=== PATIENT | male | born 1950 | race Caucasian/White ===

== ENCOUNTER → 2018-10-05 10:11 | Outpatient (CLI) | payer MEDICARE, OTHER, SELFPAY ==
[2018-10-05 11:24] LABS: EXAGEN MAILED SPECIMEN
[2018-10-05 12:14] LABS: Color, Urine Yellow (Yellow); Glucose, Dipstick Normal (Normal); Ketone-Dipstick Negative (Negative); Leukocyte Esterase-Dipstick 25 /ul (Negative); Nitrite-Dipstick Negative (Negative); Occult Blood-Urine Negative /ul (Negative); Protein-Dipstick 15 mg/dl (Negative); Specific Gravity, Urine 1.025 (1.002-1.030); Urine Bilirubin Dipstick Negative (Negative); Urine Clarity Clear (Clear); Urine Urobilinogen Normal (Normal)
[2018-10-05 12:27] LABS: Erythrocyte Sedimentation Rate 55 mm/hr (0-20)
[2018-10-05 12:29] LABS: Absolute Lymphocyte Count 1.12 X10^3/ul (0.83-4.51); Absolute Neutrophil Count 5.3 X10^3/uL (2.0-7.7); Basophil# 0.03 X10^3/uL; Basophil% 0.4 % (0-1); Eosinophil# 0.45 X10^3/uL; Eosinophils% 5.9 % (0-5); Hematocrit 43.7 % (40-54); Hemoglobin 14.1 g/dl (13.0-16.5); Lymphocyte # 1.12 X10^3/ul (4.0); Lymphocyte % 14.7 % (19-41); Mean Corp Hgb Conc 32.3 g/gl (32-36); Mean Corpuscular Hgb 28.7 pg (27.0-32.0); Mean Corpuscular Volume 88.8 fL (80-94); Monocyte# 0.73 X10^3/uL; Monocyte% 9.6 % (0-10); Neutrophil % 69.3 % (47-70); Platelet Count 321 K/mm3 (150-450); Protein, Urine (Random) 18.8 mg/dL (<11.9); Protein:Creat Ratio 94 mg/g CRE (0-200); RBC Distribution Width CV 15.3 % (11.6-14.6); RBC Distribution Width SD 49.8 fl (35.1-43.9); Red Blood Count 4.92 M/mm3 (4.6-6.2); White Blood Count 7.6 K/mm3 (4.4-11.0)
[2018-10-05 12:31] LABS: POSITIVE COUNT NO; POSITIVE DIFFERENTIAL NO; POSITIVE MORPHOLOGY NO
[2018-10-05 12:34] LABS: ALB/GLOB Ratio 0.9 RATIO (0.9-2.4); AST(SGOT) 15 U/L (15-37); Alanine Aminotransfer ALT/SGPT 18 U/L (16-61); Albumin, Serum 3.5 g/dL (3.2-5.0); Alkaline Phosphatase 89 U/L (45-117); Anion Gap 7 (5-15); BUN 19 mg/dL (7-18); Calcium,Total 9.1 mg/dL (8.5-10.1); Chloride 107 mmol/L (98-107); EST Glomerular Filtration Rate 79 mL/min (>60); Est Glom Filt Rate - Afr Amer 95 mL/min (>60); Globulin 3.8 g/dL (2.2-4.2); Glucose 89 mg/dL (74-106); Potassium 4.2 mmol/L (3.5-5.1); Protein, Total 7.3 g/dL (6.4-8.2); Sodium Level 141 mmol/L (136-145)
[2018-10-07 12:16] LABS: HEPATITIS B SURFACE AG Negative (Negative); Hep B Surface Antibodies Non Reactive (.); Hep C Antibodies <0.1 s/co ratio (0.0-0.9)
== END ==
PROVIDERS: Family Provider Family Medicine; PCP Family Medicine; Referring Provider Internal Medicine Rheumatology; Visit Provider Internal Medicine Rheumatology
DX: M06.4 Inflammatory polyarthropathy (principal); R76.8 Other specified abnormal immunological findings in serum; M47.892 Other spondylosis, cervical region; M47.897 Other spondylosis, lumbosacral region; K21.9 Gastro-esophageal reflux disease without esophagitis; F41.9 Anxiety disorder, unspecified; F32.89 Other specified depressive episodes; G62.9 Polyneuropathy, unspecified
CPT/HCPCS: 36415; 80053; 81002; 82570; 84156; 85025; 85652; 86140; 86706; 86803; 87340

== ENCOUNTER 2021-08-01 15:20 | Outpatient (CLI) | payer OTHER, MEDICARE, SELFPAY ==
--- NOTE | 2021-08-01 09:00 | KNEE_PTH ---
PATIENT: JOAQUÍN IBARRA LOC: [facility] U#:[id number] AGE/SX: 70/M ROOM: RE08/01/[address]: Dr. Sixto Duenas MD : 1950 BED: DIS: 08/01/2021 SPEC #: [id number] RECD: 08/01/21 15:08 STATUS: CARLOS REChristine #: [id number] SAMY: 08/01/21 09:[address]: Sixto Duenas DEPT: SURGICAL PATHOLOGY RECD BY: Beth Muniz ENTERED: 08/04/21 08:04 SP TYPE: TOTAL KNEE OTHR DR: Dr. Mehdi Chavarria MD Tissues: Knee, NOS Procedures: Decalcification bone/plaque Surgery Specimen Level IV HEADER OPERATION: Right total knee replacement PRE-OP DIAGNOSIS: Right knee arthritis TISSUE SUBMITTED: Right knee bone MICROSCOPIC DIAGNOSIS Bone and tissue of right knee, total knee resection: Severe degenerative joint disease. Mild synovial hyperplasia. AM:ara 08/07/2021 MICROSCOPIC DESCRIPTION Slides are reviewed. GROSS DESCRIPTION Received is one container designated bone and soft tissue right knee. The specimen consists of multiple fragments of loving-yellow bone measuring in aggregate 11 x 9 x 3 cm. Also in the specimen container are multiple fragments of yellow-white soft tissue measuring in aggregate 9 x 7 x 3 cm. A number of bony fragments contain articular surfaces consistent with tibial plateau and femoral condyle and displaying prominent osteophyte formation, eburnation, and bone erosion. Hairspring Setter sections are submitted in two cassettes as follows: 1 - soft tissue, 2 - bone after decalcification. / LALO:ara 08/04/2021 TC:5 CPT: 72652, 84179
== END 2021-08-01 23:59 | disposition short-term general hospital (02) ==
PROVIDERS: PCP Family Medicine; Visit Provider Orthopaedic Surgery
DX: M17.11 Unilateral primary osteoarthritis, right knee (principal)
CPT/HCPCS: 88305; 88311

== ENCOUNTER 2021-12-22 09:04 | Day surgery (SDC) | payer OTHER, SELFPAY ==
--- NOTE | 2021-12-22 | LES_PTH ---
PATIENT: JOAQUÍN IBARRA [place] [facility] [id number] AGE/SX: 71/M ROOM: RE12/22/[address]: Dr. Marlo Varela MD : 1950 BED: DIS: 12/22/2021 SPEC #: [id number] RECD: 12/22/21 11:10 STATUS: CARLOS REQ #: [id number] SAMY: 12/22/21 00:[address]: Marlo Varela DEPT: SURGICAL PATHOLOGY RECD BY: Teena Stoll ENTERED: 12/22/21 11:59 SP TYPE: Lesion OTHR DR: Dr. Mehdi Chavarria MD Tissues: A - Skin of neck, NOS B - Skin of face, NOS Procedures: Frozen Section (charge) Frozen Section Add'l ([facility]) Surgery Specimen Level IV HEADER OPERATION: Excision lesion left neck with frozen section PRE-OP DIAGNOSIS: Basal cell carcinoma of skin of scalp and neck TISSUE SUBMITTED: A - Basal cell carcinoma, left neck, short stitch - anterior, long stitch - lateral, FS, B - Right chin lesion FROZEN SECTION DIAGNOSIS A. Left neck lesion, excisional biopsy: Basal cell carcinoma. Margins are free of tumor. SJ:ara 12/22/2021 MICROSCOPIC DIAGNOSIS A. Right neck lesion, excisional biopsy: Basal cell carcinoma, completely excised. See comment. B. Right chin lesion, excisional biopsy: Intradermal nevus, neurotized. Focal verrucous keratosis. See comment. SJ:ara 12/24/2021 COMMENT A. The tumor measures 0.8 x 0.5 cm in greatest dimension (measured microscopically). B. The nevus is present at one lateral margin of the specimen. Immunohistochemistry ([id number]) supports the above diagnosis. Case has been reviewed in consultation with Dr. Lutz who concurs with the above diagnosis. IDC:AM MICROSCOPIC DESCRIPTION Slides are reviewed. GROSS DESCRIPTION A - Received fresh for frozen section diagnosis labeled with the patient's name is a specimen designated left neck lesion. The specimen consists of a piece of loving-white skin ellipse measuring 2.6 x 2 x 0.2 cm. The specimen is oriented as follows: short stitch - anterior, long stitch - lateral. The specimen is inked as follows: anterior tip - yellow, posterior tip - green, lateral margin - black, medial margin - blue. The specimen is serially sectioned and submitted entirely for frozen section diagnosis in three cassettes as follows: 1 - anterior and posterior tip, 2 & 3 - rest of the specimen. / LALO:ara 12/22/2021 B - Received in fixative is one container labeled with the patient's name and designated right chin lesion. The specimen consists of a piece of skin measuring 0.6 x 0.5 x 0.3 cm. The specimen is inked, sectioned and submitted entirely in one cassette. / SJ:ara 12/23/2021 TC:0 CPT: 96458 x2, 09043, 32000 x2
--- NOTE | 2021-12-22 | IMM_PTH ---
PATIENT: JOAQUÍN IBARRA LOC: [facility] – [place] U#:[id number] AGE/SX: 71/M ROOM: RE12/22/[address]: Dr. Marlo Varela MD : 1950 BED: DIS: 12/22/2021 SPEC #: [id number] RECD: 12/24/21 13:44 STATUS: CARLOS REQ #: [id number] SAMY: 12/22/21 00:[address]: Marlo Varela DEPT: IMMUNOHISTOCHEMISTRY RECD BY: Teena Stoll ENTERED: 12/24/21 13:46 SP TYPE: IMMUNO OTHR DR: Dr. Mehdi Chavarria MD Tissues: B - Skin of face, NOS Procedures: SMA (add) CK8 (add) DESMIN (add) Vimentin (add) Pankeratin (initial) MELAN-A (add) S-100 (add) PHYSICIAN & INSTITUTION [place] [id number] SPECIMEN INFORMATION: Tissue Source: B ? Right chin lesion Clinical Info: Basal cell carcinoma of skin of scalp and neck Specimen Number: [id number] CPT code: 22137, 56134 x6 METHODOLOGY: Deparaffinized sections of prefer/formalin-fixed tissue or PAP/DQ stained slides are incubated with monoclonal/polyclonal antibodies/oligonucleotide probes. Localization is made via biotin free immunoperoxidase method. Appropriate controls are performed and reacted as expected. Results on target cell population are indicated in the following table: RESULTS: ANTIBODY / CLONE RESULT Block B AE1-3 (AE1/AE3/PCK26) negative CK8 ([id number]) negative Vimentin (V9) positive Actin (1A4) negative Desmin (CE-R-11) negative Melan A (A103) negative S-100 (4C4.9) positive These tests were developed and their performance characteristics determined by [facility]. They may not have been cleared or approved by the U.S. Food and Drug Administration. The FDA has determined that such clearance or approval is not necessary. The above immunohistochemical/dualISH markers are ordered and reviewed by the Pathologist. INTERPRETATION: Right chin lesion, excisional biopsy: Intradermal nevus, neurotized. LALO:ara 12/25/2021
[2021-12-22 09:55] VITALS: BP 121/58; PULSE 62; RESP 16; TEMP 36.4; O2SAT 96; BMI 34.1
[2021-12-22] MEDS: Lidocaine 1% /Epi 1:100 (20ml) 20 ML Vial (10:51)
--- NOTE | 2021-12-22 11:39 | PCM.DC.SUM ---
Providers Primary Care Physician: Dr. Mehdi Chavarria MD Reason For Visit: EXC L NECK LESION FROZEN SECTION Medications at Discharge Home Medications bupropion HCl 150 mg 24 hr tablet, extended release 300 mg PO DAILY 12/15/21 fluoxetine 40 mg capsule 40 mg PO QHS 12/15/21 folic acid 1 mg tablet 2 mg PO DAILY 12/15/21 gabapentin 600 mg tablet 400 mg PO TID 12/15/21 hydroxychloroquine 200 mg tablet 400 mg PO QHS 12/15/21 leucovorin calcium 25 mg tablet 15 mg PO MO 12/15/21 levothyroxine 125 mcg tablet 125 mcg PO DAILY 12/15/21 methotrexate sodium 2.5 mg tablet 20 mg PO GARNER 12/15/21 mirtazapine 30 mg tablet 30 mg PO QHS depression 12/15/21 omeprazole 20 mg capsule,delayed release 20 mg PO DAILY 12/15/21 prednisone 2.5 mg tablet 2.5 mg PO DAILY 12/15/21 tamsulosin 0.4 mg capsule 0.4 mg PO DAILY 12/15/21 Weight / BMI Weight Weight: 124 kg Body Mass Index (BMI) 34.1 D/C Instructions Discharge Diet: No restrictions Remove Dressing in: 1 day Additional Dressing/Incision Instructions: Remove dressing tomorrow morning and discard. Apply antibiotic ointment (over the counter) twice a day to the sutures. You may get the sutures wet on Wednesday. Please Follow Up With: Marlo Varela MD When: next week Meaningful Use Info Meaningful Use Diagnoses (Choose all that apply): None applicable Discharge Plan Admission Attending Provider: Marlo Varela Primary Care Provider: Mehdi Chavarria Discharge Orders/Prescriptions Prescriptions: No Action fluoxetine 40 mg capsule 40 mg PO QHS Label Comments: TAKE 1 CAPSULE BY MOUTH ONCE DAILY gabapentin 600 mg tablet 400 mg PO TID Label Comments: TAKE 1 TABLET BY MOUTH THREE TIMES DAILY leucovorin calcium 25 mg tablet 15 mg PO MO Label Comments: TAKE 1 TABLET BY MOUTH ONCE A WEEK methotrexate sodium 2.5 mg tablet 20 mg PO GARNER Label Comments: TAKE 8 TABLETS BY MOUTH ONCE A WEEK tamsulosin 0.4 mg capsule 0.4 mg PO DAILY Label Comments: TAKE 1 CAPSULE BY MOUTH ONCE DAILY prednisone 2.5 mg tablet 2.5 mg PO DAILY Label Comments: TAKE 1 TABLET BY MOUTH IN THE MORNING mirtazapine 30 mg tablet 30 mg PO QHS Label Comments: TAKE 1 TABLET BY MOUTH EVERY DAY AT BEDTIME levothyroxine 125 mcg tablet 125 mcg PO DAILY omeprazole 20 mg capsule,delayed release(DR/EC) 20 mg PO DAILY Label Comments: TAKE 1 CAPSULE BY MOUTH ONCE DAILY folic acid 1 mg tablet 2 mg PO DAILY Label Comments: TAKE 2 TABLETS BY MOUTH ONCE DAILY hydroxychloroquine 200 mg tablet 400 mg PO QHS Label Comments: TAKE 1 TABLET BY MOUTH TWICE DAILY bupropion HCl 150 mg tablet extended release 24 hr 300 mg PO DAILY Label Comments: TAKE 1 TABLET BY MOUTH EVERY 24 HOURS Referrals / Follow Up: Mehdi Chavarria MD [Primary Care Provider] - Disposition Disposition (needs filled in before D/C Order can be placed): Home, Self Care
--- NOTE | 2021-12-22 11:41 | OP.PCM_ITS ---
Report of Operation Date of Procedure: 12/22/21 Pre-Operative Diagnosis: 1. basal cell carcinoma left neck 2. right neck neoplasm Post-Operative Diagnosis: same Surgery/Procedure Performed:: 1. Excision basal cell carcinoma left neck (size of defect 3.4 x 2.5 cm) with intermediate repair 2. Excision left neck neoplasm (size of defect 1 x .8 cm) with intermediate repair Surgeon: Marlo Varela Type of Anesthesia: General Anesthesiologist: Devyn Shelton Estimated Blood Loss (mL): minimal Description of Procedure: The patient was taken to the operating room on 12/22/2021. He was placed in the supine position on the operating table. He was given sufficient general anesthesia. The entire neck was prepped and draped sterilely. 1% lidocaine wi th epinephrine was injected into the area surrounding the right neck neoplasm and the left neck basal cell carcinoma. The right neck lesion was excised in an ellipse with a 15 blade. Hemostasis was achieved with bipolar cautery. I then undermined the skin with scissors. Again hemostasis was achieved with bipolar cautery. Irrigation was then used. The subcutaneous skin was then closed with 4-0 Vicryl and the skin was closed with running 5-0 nylon. Attention was then turned to the left neck basal cell carcinoma. I excised the lesion in an ellipse with 5 mm margins circumferentially. This was completed with a 15 blade. Sharp dissection was then used to to remove the specimen in its entirety. It was sent for frozen section. Hemostasis was achieved with bipolar cautery. We eventually heard back from anesthesia that the margins were clear of any tumor. The subcutaneous tissue was closed with interrupted 4-0 Vicryl. Skin was closed with running 5-0 nylon. A pressure dressing was then applied. Patient then awoken and brought to recovery room in stable condition. Blood loss minimal, replacement none. Sponge, needle, and instrument count were correct at the end of the procedure.
[2021-12-22 11:50] VITALS: BP 113/61; BP 121/68; PULSE 69; RESP 16; TEMP 36.3; O2SAT 95
[2021-12-22 12:00] VITALS: BP 105/60; BP 121/68; PULSE 63; RESP 16; O2SAT 16
[2021-12-22 12:15] VITALS: BP 104/70; BP 121/68; PULSE 64; RESP 16; O2SAT 93
[2021-12-22 12:17] VITALS: BP 105/64; BP 121/68; PULSE 62; RESP 16; TEMP 36.9; O2SAT 96
== END 2021-12-22 12:52 | disposition home or self-care (01) ==
LOC: SDC 09:06 → AC 09:11
PROVIDERS: PCP Family Medicine; Referring Provider Otolaryngology; Visit Provider Otolaryngology
PROC: (CPT 11604; principal; 2021-12-22 10:20)
DX: C44.41 Basal cell carcinoma of skin of scalp and neck (principal); M06.9 Rheumatoid arthritis, unspecified; L57.0 Actinic keratosis; F41.9 Anxiety disorder, unspecified; F32.A Depression, unspecified; K21.9 Gastro-esophageal reflux disease without esophagitis; Z86.16 Personal history of COVID-19
CPT/HCPCS: 11604; 00300; 88305; 88331; 88332; 88341; 88342; J7120; J2405

== ENCOUNTER → 2022-04-20 | Outpatient (CLI) | payer MEDICARE, SELFPAY ==
[2022-04-22 16:09] LABS: Red Blood Cell Count Test/G6PD 4.25 x10E6/uL (4.14-5.80)
[2022-04-23 17:39] LABS: G6PD Quant Test 291 (127-427)
== END | disposition home or self-care (01) ==
PROVIDERS: PCP Family Medicine; Referring Provider Internal Medicine Rheumatology; Visit Provider Internal Medicine Rheumatology
DX: M06.4 Inflammatory polyarthropathy (principal); Z79.899 Other long term (current) drug therapy; M47.892 Other spondylosis, cervical region; M47.897 Other spondylosis, lumbosacral region; K21.9 Gastro-esophageal reflux disease without esophagitis; F41.9 Anxiety disorder, unspecified; F32.89 Other specified depressive episodes; G62.9 Polyneuropathy, unspecified
CPT/HCPCS: 36415; 82955

== ENCOUNTER → 2022-11-10 | Outpatient (CLI) | payer MEDICARE, SELFPAY ==
[2022-11-10 12:30] VITALS: PULSE 101; PULSE 105; PULSE 80; PULSE 83; PULSE 90; PULSE 91; O2SAT 91; O2SAT 92; O2SAT 93; O2SAT 95
--- NOTE | 2022-11-10 14:15 | WT_ITS ---
PSN 6 Minute Walk Test 6 Minute Walk Test 6 Minute Walk Test: 6 Minute Walk Test PSN:6-Minute Walk Test Start: 11/10/22 12:46 Freq: Status: Active Protocol: RESP.6MINW Document 11/10/22 12:30 [facility] (Rec: 11/10/22 12:48 [facility] [id number]) 6 Minute Walk Test Date Performed 11/10/22 Time Performed 12:30 Height 6 ft 3 in Weight: 124.738 kg Weight in Pounds 275.[address]: Dr Chavarria Assistive device used: None Pre-test Oxygen Delivery Method Room Air Pulse Ox (%) 92 Pulse Rate (60-100 beats/min) 80 Dyspnea Jason Scale (0-10) 0.5 Exertion Jason Scale (6-20) 6 1st minute Oxygen Delivery Method Room Air Pulse Ox (%) 92 Pulse Rate (60-100 beats/min) 90 2nd minute Oxygen Delivery Method Room Air Pulse Ox (%) 91 Pulse Rate (60-100 beats/min) 91 3rd minute Oxygen Delivery Method Room Air Pulse Ox (%) 92 Pulse Rate (60-100 beats/min) 105 H 4th minute Oxygen Delivery Method Room Air Pulse Ox (%) 93 Pulse Rate (60-100 beats/min) 91 5th minute Oxygen Delivery Method Room Air Pulse Ox (%) 92 Pulse Rate (60-100 beats/min) 91 6th minute Oxygen Delivery Method Room Air Pulse Ox (%) 93 Pulse Rate (60-100 beats/min) 101 H Dyspnea Jason Scale (0-10) 0.5 Exertion Jason Scale (6-20) 8 Post-test Oxygen Delivery Method Room Air Pulse Ox (%) 95 Pulse Rate (60-100 beats/min) 83 Full Laps Walked 18 Partial Lap, Number of Tiles Walked 28 Total Distance Walked (ft) 1090 Interpretation Interpretation: The patient was noted to be 92% on room air at rest. The patient did not have significant desaturation with an oxygen sophie of 91%, but did have some tachycardia as high as 105 bpm. In total, the patient traveled 1090 feet over the course of 6 minutes on room air with no assistive devices or breaks. These findings are consistent with a respiratory limitation exercise tolerance. Recommendations Recommendations: However No supplemental oxygen is indicated at this time. The patient will need to be followed closely given lower baseline saturations.
== END | disposition home or self-care (01) ==
LOC: PSN 12:09
PROVIDERS: PCP Family Medicine; Referring Provider Internal Medicine Critical Care Medicine; Visit Provider Internal Medicine Critical Care Medicine
DX: R06.09 Other forms of dyspnea (principal)
CPT/HCPCS: 94618

== ENCOUNTER → 2022-11-17 | Outpatient (CLI) | payer MEDICARE, SELFPAY ==
--- NOTE | 2022-11-18 07:51 | BRONCHALL ---
Bronchoprovocation Challenge Bronchoprovocation Challenge Bronchoprovocation Challenge: INTRODUCTION: The patient is a 71-year-old male that presents for a methacholine inhalation challenge secondary to a diagnosis of dyspnea. Respiratory therapy reported good patient effort and reproducible results. INTERPRETATION: Initial spirometry did not show any large airways obstructive ventilatory defect with preserved airflows throughout. The patient was then given progressively increasing doses of methacholine in a standardized fashion. At the highest level, the patient did experience a 22% reduction in FEV1. Postbronchodilator recovery was noted. The PD 20 FEV1 was noted to be 1.47. IMPRESSION: Positive methacholine inhalation challenge in a pattern consistent with borderline airway hyperresponsiveness.
== END | disposition home or self-care (01) ==
LOC: PSN 12:54
PROVIDERS: PCP Family Medicine; Referring Provider Internal Medicine Critical Care Medicine; Visit Provider Internal Medicine Critical Care Medicine
DX: R06.09 Other forms of dyspnea (principal)
CPT/HCPCS: 94070; 95070; J3490; J7674

== ENCOUNTER 2023-07-19 05:49 | Day surgery (SDC) | payer MEDICARE, SELFPAY ==
--- NOTE | 2023-07-15 09:00 | EKG12_ITS ---
Test Reason : PRE OP Blood Pressure : / mmHG Vent. Rate : 069 BPM Atrial Rate : 069 BPM P-R Int : 162 ms QRS Dur : 092 ms QT Int : 422 ms P-R-T Axes : 040 -22 040 degrees QTc Int : 452 ms Normal sinus rhythm with sinus arrhythmia Low voltage QRS Borderline ECG Confirmed by ROBERTO CARLOS REYEZ, YECENIA ([id number]), publication editor KAREN COHEN ([id number]) on 07/16/2023 7:27:27 AM Referred By: Marlo Varela Confirmed By:YECENIA AZEVEDO MD
[2023-07-15 09:28] LABS: Hematocrit 43.4 % (40-54); Hemoglobin 13.7 g/dL (13.0-16.5); Mean Corp Hgb Conc 31.6 g/dL (32-36); Mean Corpuscular Hgb 31.2 pg (27.0-32.0); Mean Corpuscular Volume 98.9 fL (80-94); Mean Platelet Vol. 9.3 fl (6.2-12.0); Platelet Count 215 K/mm3 (150-450); RBC Distribution Width SD 54.1 fl (35.1-43.9); Red Blood Count 4.39 M/mm3 (4.6-6.2); White Blood Count 5.4 K/mm3 (4.4-11.0)
[2023-07-15 10:07] LABS: BUN 13 mg/dL (7-18)
[2023-07-19] VITALS (8 sets, daily range): BP systolic 108–137; BP diastolic 71–76; PULSE 61–76; RESP 16; TEMP 36.3–36.7; O2SAT 94–99; BMI 34.3
--- OUTSIDE RECORDS SUMMARY | 2023-07-19 06:00 | XMS RPT_ITS | CCD ---
Author Name Unknown Address [address] [place] [address] Organization [facility] Care Team Providers Care Mooner Name Role Phone MEHDI CHAVARRIA MD Primary Care Physician MEHDI CHAVARRIA MD Primary Care Unavailable TAMERA REYEZ, DR MELENDEZ Attending Unavailabl e MEHDI CHAVARRIA Consulting Unavailable RILEY CARPIO MD Admitting Unavailable RILEY CARPIO MD Primary Care Unavailable RILEY CARPIO MD Attending Unavailable PROVIDER, UNKNOWN Consulting Unavailable PROVIDER, UNKNOWN Consulting Unavailable PROVIDER, UNKNOWN Consulting Unavailable MEHDI CHAVARRIA Attending Unavailable MEHDI CHAVARRIA Admitting Unavailable MEHDI CHAVARRIA Primary Care Unavailable MEHDI CHAVARRIA Consulting Unavailable PROVIDER, UNKNOWN Consulting Unavailable PROVIDER, UNKNOWN Consulting Unavailable PROVIDER, UNKNOWN Consulting Unavailable DIANN COUCH MD Attending Unavailable DIANN COUCH MD Admitting Unavailable DIANN COUCH MD Primary Care Unavailable MEHDI CHAVARRIA Referring Unavailable MEHDI CHAVARRIA Consulting Unavailable PROVIDER, UNKNOWN Consulting Unavailable PROVIDER, UNKNOWN Consulting Unavailable PROVIDER, UNKNOWN Consulting Unavailable MCKAYLA BRANDON DO Attending Unavailable MCKAYLA BRANDON DO Admitting Unavailable MEHDI CHAVARRIA Referring Unavailable MCKAYLA BRANDON DO Primary Care Unavailable MEHDI CHAVARRIA Consulting Unavailable PROVIDER, UNKNOWN Consulting Unavailable PROVIDER, UNKNOWN Consulting Unavailable PROVIDER, UNKNOWN Consulting Unavailable MEHDI CHAVARRIA Attending Unavailable MEHDI CHAVARRIA Admitting Unavailable MEHDI CHAVARRIA Primary Care Unavailable MEHDI CHAVARRIA Consulting Unavailable PROVIDER, UNKNOWN Consulting Unavailable PROVIDER, UNKNOWN Consulting Unavailable PROVIDER, UNKNOWN Consulting Unavailable DIANN COUCH MD Attending Unavailable DIANN COUCH MD Admitting Unavailable MEHDI CHAVARRIA Consulting Unavailable DIANN COUCH MD Primary Care Unavailable PROVIDER, UNKNOWN Consulting Unavailable PROVIDER, UNKNOWN Consulting Unavailable PROVIDER, UNKNOWN Consulting Unavailable MARYJANE OCHOA BOILER HOUSE SUPERVISOR Attending Unavailable MARYJANE OCHOA BOILER HOUSE SUPERVISOR Admitting Unavailable MEHDI CHAVARRIA Consulting Unavailable MARYJANE OCHOA BOILER HOUSE SUPERVISOR Primary Care Unavailable PROVIDER, UNKNOWN Consulting Unavailable PROVIDER, UNKNOWN Consulting Unavailable PROVIDER, UNKNOWN Consulting Unavailable TEACH, MARYJANE BOILER HOUSE SUPERVISOR Attending Unavailable TEACH, MARYJANE BOILER HOUSE SUPERVISOR Admitting Unavailable TEACH, MARYJANE BOILER HOUSE SUPERVISOR Primary Care Unavailable DEON, MEHDI Consulting Unavailable PROVIDER, UNKNOWN Consulting Unavailable PROVIDER, UNKNOWN Consulting Unavailable PROVIDER, UNKNOWN Consulting Unavailable RILEY CARPIO Attending Unavailable RILEY CARPIO Admitting Unavailable BROWN, MEHDI Consulting Unavailable RILEY CARPIO Primary Care Unavailable PROVIDER, UNKNOWN Consulting Unavailable PROVIDER, UNKNOWN Consulting Unavailable PROVIDER, UNKNOWN Consulting Unavailable MEHDI CHAVARRIA Consulting Unavailable RILEY CARPIO MD Admitting Unavailable RILEY CARPIO MD Primary Care Unavailable RILEY CARPIO MD Attending Unavailable PROVIDER, UNKNOWN Consulting Unavailable PROVIDER, UNKNOWN Consulting Unavailable PROVIDER, UNKNOWN Consulting Unavailable MEHDI CHAVARRIA Consulting Unavailable RILEY CARPIO MD Attending Unavailable RILEY CARPIO MD Admitting Unavailable RILEY CARPIO MD Primary Care Unavailable PROVIDER, UNKNOWN Consulting Unavailable PROVIDER, UNKNOWN Consulting Unavailable PROVIDER, UNKNOWN Consulting Unavailable Deon REYEZ, Mehdi Bynum Unavailable [facility] Unavailable Lamont REYEZ, Dr. Daisha Graham Unavailable Dr. Iban Hammer MD Unavailable [facility] Unavailable Dr. Riley Carpio MD Unavailable Dr. Daren Philip MD Unavailable Medicine [facility] Unavailable Henrique REYEZ, Dr. Henson ([facility]) A Unavail able Luciano MONAE, Jian Thomson Unavailable Shayne HEALTH AND SAFETY TECHNICIAN, Demi Unavailable Unavailable Delta HEALTH AND SAFETY TECHNICIAN, Apple E Unavailable Unavailable Cecilio RIVERA, Elaina Unavailable Unavailable Sachin HEALTH AND SAFETY TECHNICIAN, Becky Unavailable Unavailable Jass, Madison C Unavailable Unavailable Candice HEALTH AND SAFETY TECHNICIAN, Lian Unavailable Unavaila ble Patrice GAINESN, Jesika Unavailable Unavailable Santa CARRERA, Pam Delatorre Unavailable Unavaila germán Mcmahan MA, Tania Unavailable Unavailable Yvonne HEALTH AND SAFETY TECHNICIAN, Renetta Unavailable Unavailable Jalil HEALTH AND SAFETY TECHNICIAN, Wes Unavailable Unavailable Tejinder CARRERA, Koki Y Unavailable Unavailable Newberry HEALTH AND SAFETY TECHNICIAN, Maru Unavailable Unavailable Mónica GAINESN, Brooke K Unavailable Unavaslim Johnson PA-C, Amber Thomson Unavailable [phone] [employer], Brenda Unavailable Unavailable Arnoldo HEALTH AND SAFETY TECHNICIAN, Aubrie M Unavailable Unavailab mikala Evans HEALTH AND SAFETY TECHNICIAN, Glendy Bassett Unavailable Unavailab mikala Lopez MA, Jesika Unavailable Unavailable Rola Acosta Unavailable Unavailable Vess HEALTH AND SAFETY TECHNICIAN, Zetania L Unavailable Unavailable Wengerd HEALTH AND SAFETY TECHNICIAN, Vilma Unavailable Unavailabl e Holland HEALTH AND SAFETY TECHNICIAN, Marci N Unavailable Unavaila ble Zaugg HEALTH AND SAFETY TECHNICIAN, Cherry Unavailable Unavailable Unavailable Unavailable Allergies Allergy Classification Reported Allergen(s) Allergy Type Date of Onset Reaction(s) Facility (1 source) Amoxicillin / Clavulanate Drug Allergy [facility] (1 source) levoFLOXacin Drug Allergy [facility] (1 source) Penicillin Drug Allergy [facility] (1 source) BEE STING; Translations: [BEE STING] Propensity to adverse reactions (disorder) [facility] (2 sources) levoFLOXacin Drug Allergy [facility] (2 sources) Augmentin *PENICILLINS* [facility] [employer] [facility]. Medications Current Medications Medication Drug Class(es) Dates Sig (Normalized) Sig (Original) acetaminophen 325 mg / HYDROcodone bitartrate 5 mg oral tablet (1 source) Opioid Agonist Start: 07-16-2013 take 1 tablet by mouth every six hours as needed for pain Lamar 325-5 mg oral tablet 1-1 tab(s), Oral, q6h, PRN for pain, 0 Refill(s) Start Date: 07/16/13 Status: Ordered 24 hr buPROPion hydrochloride 300 mg extended release oral tablet (6 sources) Aminoketone take 1 tablet by mouth every twelve hours BuPROPion HCl ER (SR) 150 MG Oral Tablet Extended Release 12 Hour ; 1 daily (150 MG) Status: Inactive Completed/Discontinued Medications Medication Drug Class(es) Dates Sig (Normalized) Sig (Original) acetaminophen 325 mg / oxyCODONE hydrochloride 5 mg oral tablet (4 sources) Opioid Agonist Start: 02-05-2017 End: 02-17-2017 take 1 tablet by mouth every six hours as needed Percocet 5-325 MG Oral Tablet ; 1 Tablet every 6 hours prn for 0 days Quantity: 40 {Tablet} Refills: 0 Ordered: 17-Feb-2017 KAREN Evans Glendy Bassett Start: 05-Feb-2017 End: 17-Feb-2017 Status: Inactive Comments: OARRS 02/05/17 Problems Active Problems Problem Classification Problem Date Documented Date Episodic/Chronic Abdominal pain (6 sources) Abdominal pain; Translations: [Unspecified abdominal pain] 10-30-2016 Episodic Allergic reactions (4 sources) Eczema; Translations: [Dermatitis, unspecified] 10-09-2021 Episodic Anxiety disorders (2 sources) Anxiety; Translations: [Generalized anxiety disorder] 07-15-2013 Chronic Biliary tract disease (2 sources) Disorder of gallbladder; Translations: [Disease of gallbladder, unspecified] 05-20-2016 Episodic Calculus of urinary tract (8 sources) Kidney stone; Translations: [Calculus of kidney] 02-08-2017 Episodic Cancer of colon (2 sources) Personal history of other malignant neoplasm of large intestine; Translations: [Personal history of other malignant neoplasm of large intestine] Onset: 11-24-2022 Episodic Chronic obstructive pulmonary disease and bronchiectasis (4 sources) Bronchitis; Translations: [Bronchitis, not specified as acute or chronic] 09-29-2017 Episodic Diabetes mellitus without complication (6 sources) Hyperglycemia; Translations: [Hyperglycemia, unspecified] 02-22-2017 Episodic Esophageal disorders (20 sources) Gastroesophageal reflux disease; Translations: [Gastro-esophageal reflux disease without esophagitis] 07-15-2013 Chronic Hyperplasia of prostate (20 sources) Benign prostatic hyperplasia; Translations: [Benign prostatic hyperplasia without lower urinary tract symptoms] 04-21-2023 Chronic Immunizations and screening for infectious disease (2 sources) Immunization due; Translations: [Encounter for immunization] 05-21-2021 Episodic Malaise and fatigue (2 sources) Fatigue; Translations: [Other fatigue] 02-17-2017 Episodic Mood disorders (20 sources) Depressive disorder; Translations: [Recurrent major depressive episodes, moderate ] 07-15-2013 Chronic Open wounds of extremities (4 sources) Laceration of hand; Translations: [Laceration without foreign body of unspecified hand, initial encounter] 09-22-2022 Episodic Osteoarthritis (6 sources) Osteoarthritis of right knee joint; Translations: [Unilateral primary osteoarthritis, right knee] 04-21-2023 Chronic Other aftercare (4 sources) Removal of sutures done; Translations: [Encounter for removal of sutures] 01-21-2023 Episodic Other connective tissue disease (6 sources) Olecranon bursitis; Translations: [Olecranon bursitis, right elbow] 12-26-2013 Episodic Other infections; including parasitic (6 sources) Late effects of other and unspecified infectious and parasitic diseases 04-21-2023 Chronic Other injuries and conditions due to external causes (2 sources) Thumb injury ; Translations: [Unspecified injury of right wrist, hand and finger(s), initial encounter] 05-30-2021 Episodic Other lower respiratory disease (4 sources) Restrictive lung disease; Translations: [Other disorders of lung] 04-21-2023 Episodic Other lower respiratory disease (4 sources) Dyspnea on exertion; Translations: [Other forms of dyspnea] 09-08-2022 Episodic Other male genital disorders (18 sources) Male erectile dysfunction, unspecified; Translations: [Impotence of organic origin] 04-21-2023 Chronic Other nervous system disorders (9 sources) Neuropathy; Translations: [Polyneuropathy, unspecified] 12-27-2015 Chronic Other nervous system disorders (6 sources) Chronic pain; Translations: [Other chronic pain] 04-21-2023 Chronic Other nervous system disorders (6 sources) Tremor; Translations: [Tremor, unspecified] 04-21-2023 Episodic Other non-traumatic joint disorders (10 sources) Polyarthropathy; Translations: [Polyarthritis, unspecified] 05-26-2019 Chronic Other non-traumatic joint disorders (2 sources) Shoulder pain; Translations: [Pain in unspecified shoulder] 08-16-2018 Episodic Other non-traumatic joint disorders (2 sources) Joint pain; Translations: [Pain in unspecified joint] 07-22-2018 Episodic Other nutritional; endocrine; and metabolic disorders (12 sources) Body mass index 30+ - obesity; Translations: [Body mass index (BMI) 32.0-32.9, adult] 09-29-2017 Chronic Other nutritional; endocrine; and metabolic disorders (4 sources) Morbid obesity; Translations: [Morbid (severe) obesity due to excess calories] 04-21-2023 Chronic Past or Other Problems Problem Classification Problem Date Documented Date Episodic/Chronic Nausea and vomiting (1 source) Nausea Onset: 4 07-15-2013 Episodic Pneumonia (except that caused by tuberculosis or sexually transmitted disease) (2 sources) Pneumonia (except that caused by tuberculosis or sexually transmitted disease) 06-15-2018 Unclassified (2 sources) Follow up for multiple chronic conditions - The patient is here for follow-up of depression, GERD, hypothyroidism and obesity. The patient always takes the prescribed medications. No side effects noted. The patient has an active lifestyle but no regular exercise program. The patient's out of office blood pressure checks occur frequently. The patient states that there is no recent angina or dyspnea, pain is worse, weight is unchanged and they do not have headaches. The patient states that the disease has moderate physical impact. Note for Multiple chronic conditions follow-up : Pt stopped his Methotrexate, Sulfasalazine, Hydroxychloroquine until he sees rheumatology again, is being seen this Wednesday. 04-21-2023 Unclassified (2 sources) [facility] Well Adult - In general the patient feels well with minor complaints (complains of shortness of breath with exertion for a couple of years.), has good energy level and is sleeping well. The patient has a balanced diet and takes no supplemental vitamins & iron. The patient exercises daily (walks and stationary bike) and sleeps 6 hours per night. The patient denies having trouble with bathing, dressing/grooming, toileting, preparing meals and ambulating. The patient denies having trouble with grocery shopping, driving, use of telephone, housework, laundry, preparing/taking medications and finances. The patient has a Healthcare Power of Hand Meat Salter and a Living Will. Note for [facility] Well Adult : reviewed by [facility] 10-13-2022 Unclassified (2 sources) laceration - patient here for laceration to left palm from chainsaw accident, occurred this afternoon 09-22-2022 Unclassified (2 sources) Breathing Trouble - The breathing trouble has been occurring in a persistent pattern for 1 year. The course has been increasing. The breathing trouble is moderate. It is described as tightness and shortness of breath. The breathing trouble occurs on exertion, occurs when walking and occurs when climbing stairs. Note for Breathing trouble : Has had breathing problems since having Covid-19 a year ago. 09-07-2022 Unclassified (2 sources) Fatigue - The onset of the fatigue has been acute and has been occurring in a persistent pattern for 4 weeks. The course has been increasing. The fatigue occurs all the time. Note for Fatigue : Had Covid 4 weeks ago. Continues with shortness of breath. Appetite is poor. 11-25-2021 Unclassified (2 sources) [facility] Well Adult - In general the patient feels well with minor complaints (Right Total Knee), has good energy level and is sleeping well. The patient has a balanced diet and takes no supplemental vitamins & iron. The patient exercises daily. The patient denies having trouble with bathing, dressing/grooming, toileting, preparing meals and ambulating. The patient denies having trouble with grocery shopping, driving, use of telephone, housework, laundry, preparing/taking medications and finances. 10-09-2021 Unclassified (2 sources) Finger pain - The pain is located in the of the right thumb. This occurred 1 week(s) ago at home. The injury resulted from a direct blow (pt was cleaning tools and went to grab for one that was falling and hit his thumb really hard on the work bench.). Symptoms include pain, swelling and finger bruising (Was present initially, but has resolved), but do not include deformity, discoloration or instability. The patient describes the pain as sharp and aching. The patient is right hand dominant. The patient describes the pain as moderate in severity. Symptoms are exacerbated by moving the finger and direct pressure, but are not exacerbated by allowing the hand to hang down. Symptoms are relieved by rest and ice. Current treatment includes acetaminophen and ice. Note for Finger pain : Treatment at home helps the pain some, but it is not getting significantly better. 05-30-2021 Unclassified (2 sources) [facility] Well Adult - In general the patient feels well with minor complaints (has RA, feels stiff in the mornings), has decreased energy level and is sleeping well (gets up during the night to use the bathroom more than he used to). The patient exercises every other day (walks 4-5 times a week, will be starting PT for his knees soon) and sleeps 6 (will also take 1 hour nap in afternoon) hours per night. The patient denies having trouble with bathing, dressing/grooming, toileting, preparing meals and ambulating. The patient denies having trouble with grocery shopping, driving, use of telephone, housework, laundry, preparing/taking medications and finances. The patient has a Healthcare Power of Hand Meat Salter and a Living Will. Note for [facility] Well Adult : reviewed by [facility] 11-26-2020 Unclassified (2 sources) [facility] Well Adult - In general the patient feels well with no complaints (Pt here for Medciare physical. Doing pretty well. Continues to have pain from Arthiritis but sees Dr. Omalely for this. Pt also sees Renetta for his depression. Dr. Carpio for arthritis.). The patient has a balanced diet and takes no supplemental vitamins & iron. The patient exercises daily and sleeps 7 hours per night. The patient denies having trouble with bathing, dressing/grooming, toileting, preparing meals and ambulating. The patient denies having trouble with grocery shopping, driving, use of telephone, housework, laundry and preparing/taking medications. The patient has a Healthcare Power of Hand Meat Salter and a Living Will. Note for [facility] Well Adult : reviewed by [facility] 12-01-2019 Unclassified (2 sources) Rash - The onset of the rash has been acute and has been occurring in a persistent pattern for days (10-14 days). The course has been increasing. The rash is characterized as red and flat. The rash was first seen on the lower extremity (left lower leg). It spread to the lower extremity. There has been associated itching and erythema, while there has been no associated drainage. Note for Rash : No change in detergents or personal hygiene products. Tried Cortisone-10 that helped some but became concerned when the rash started to spread to thighs. reviewed by [facility] 06-19-2019 Unclassified (2 sources) Medication consultation - Is concerned he may be having side effects to medications. Sweats easily, tongue feels slight swollen and increased fatigue and occasional dizziness. Also eye sight is changing rapidly. Has eye appointment scheduled next week. Med list reviewd and updated in chart 02-22-2019 Unclassified (2 sources) Joint Complaints multiple - The onset of the joint complaints has been acute , and they have been occurring in an increasing pattern for 2 months. The course has been gradually worsening. The joint complaints are described as a moderate pain, stiffness and tenderness. The pain is located in the neck, spine, left shoulder, right shoulder, left wrist, right wrist, left hand, right hand, left knee and right knee. There are no aggravating factors. Associated symptoms include lack of energy and malaise. Note for Joint complaints : Was on a course of Prendisone in which helped pain for awhile. He has been on Levaquin which seemed to precipitate sx. No family hx of connective tissue diseases. Shoulders and knees hurt the most. Also knees and hips but pain is worse upper extremeties. Also c/o neck, elbows , wrists. 08-16-2018 Unclassified (2 sources) Cold Symptoms - Symptoms include nasal congestion, runny nose, sore throat, hoarseness, dry cough, fever, chills and general malaise. The onset was sudden 2 day(s) ago. The symptoms occur constantly. The patient describes this as moderate in severity and worsening. Current treatment includes celebrex, prednisone. Risk factors do not include smoking. Note for Upper respiratory infection : pt has had pneumonia twice in the last few months, he is currently on prednisone when he started with the same symptoms. He had multiple joint pain from his recent treatment of levaquin for pneumonia. See previous 08-01-2018 Unclassified (2 sources) Follow up consultation - The patient is here to follow-up after hospitalization ([facility] with bilateral pneumonia.) on : (05-16-18 to 05-18-18). Note for Consultation follow-up : Is feeling much better. Continues with fatigue. reviewed by [facility] 05-25-2018 Unclassified (2 sources) Fatigue - The onset of the fatigue has been acute and has been occurring in a persistent pattern for 4 weeks (started when he had a kidney stone.). The course has been constant. The fatigue occurs all the time. The symptoms have been associated with chest pain (ache with exertion) and myalgia. Note for Fatigue : Complains of multiple joint pain. reviewed by [facility] 02-17-2017 Unclassified (1 source) Transition into care - The patient is transitioning into care from an emergency room and a summary of care was reviewed. 01-18-2017 Unclassified (1 source) [ADDITIONAL REASON] Follow up consultation - The patient is here to follow-up after Emergency Room/Urgent Care ([facility]. Diagnsosis: Right Renal Colic with Right Ureteral Calculus.) on : (01/15/17 and again . ). Note for Consultation follow-up : Pt continues to have right flank pain that radiates around into right groin. Urinating frequently but only small amounts. No fever or chills. Is drinking fluids. The Percocet and Tramadol help with pain but does help some. Medication does make him groggy. reviewed by [facility] 01-18-2017 Unclassified (2 sources) MCR Well Adult - In general the patient feels well with no complaints (Pt here for Medciare physical. Doing pretty well. Continues to have pain from Arthiritis but sees Dr. Omalley for this. Pt also sees Renetta for his depression. ). The patient has a balanced diet and takes no supplemental vitamins & iron. The patient exercises daily and sleeps 7 hours per night. The patient denies having trouble with bathing, dressing/grooming, toileting, preparing meals and ambulating. The patient denies having trouble with grocery shopping, driving, use of telephone, housework, laundry and preparing/taking medications. The patient has a Healthcare Power of Hand [employer] Salter and a Living Will. Note for [facility] Well Adult : reviewed by [facility] 11-06-2016 Unclassified (2 sources) Cold Symptoms - Symptoms include sneezing, nasal congestion, runny nose, ear fullness, scratchy throat, productive cough, fever (low grade), general malaise, headache and facial pain, but do not include ear pain. The onset was sudden 10 day(s) ago. The symptoms occur constantly. The patient describes this as moderate in severity and worsening. Current treatment includes non-prescription cold medication and NSAIDs. Medical history includes seasonal allergies. Note for Upper respiratory infection : reviewed by B 11-18-2015 Unclassified (2 sources) Sebaceous Cyst - Sebaceous cyst on mid upper back. Finished full course of Augmentin. Here for removal. ( see previous note ) 06-19-2014 Unclassified (2 sources) sebacous cyst - Sebaceous cyst on the mid- upper back at the neck line with red drainage noted. Area is painful to touch. reviewed by [facility] 05-08-2014 Unclassified (2 sources) Drain Elbow - 1Pt was here 12/12 13 and diagnosed with olecranon bursitis of right elbow. Was put on tapering course of prednisone and instructed on using jose e wrap to elbow. He has done that but no improvement. Elbow still warm to touch, red and has fluid on it. Here today to have elbow drained.Pt is having epidural injection in 1 week per Pain management and hoping to get this clear prior to this. reviewed by [facility] 12-25-2013 Unclassified (2 sources) Elbow pain - The onset of the pain has been acute and has been occurring in a persistent pattern for 3 days. The course has been worsening. The pain is moderate and is characterized as a dull aching. The pain is described as being located down the entire arm in the right elbow. There were no aggravating factors. The symptoms have been associated with swelling in the elbow. Note for Elbow pain : reviewed by [facility] 12-12-2013 Unclassified (2 sources) Cold Symptoms - Symptoms include nasal congestion, ear pain (more in the eustachian tubes), sore throat (with swallowing and coughing), productive cough and general malaise, but do not include sneezing, runny nose or chills. The onset was sudden 3 day(s) ago. The symptoms occur constantly. The patient describes this as moderate in severity and worsening. Current treatment includes non-prescription cold medication (kenya selayakaer). The patient has not been exposed to an individual with similar symptoms. Medical history includes seasonal allergies, recurrent sinusitis, recurrent strep pharyngitis and recurrent ear infections, but patient denies history of asthma or tonsillectomy. 10-15-2012 Unclassified (2 sources) New Patient Consult - Pt is here today to get established as new patient. Pt has history of hypothyroidism, depressive disorder, neuropathy. Has medications with him and meds put in history. Has lab orders but does not need done till end of year. Pt has not been fasting today.He also needs suture removal today for left index finger. He cut his finger on a a sharp corner of his boat. Sutures have been in for about 13 days. ER reprot reviewed.His depression has been severe in past, has been on multiple meds, even had ECT in the past. He currently follows w DR Jackson. 05-16-2012 Unclassified (1 source) Follow up consultation - The patient is here to follow-up after Emergency Room/Urgent Care ([facility]. Diagnsosis: Right Renal Colic with Right Ureteral Calculus.) on : (01/15/17 and again . ). Note for Consultation follow-up : Pt continues to have right flank pain that radiates around into right groin. Urinating frequently but only small amounts. No fever or chills. Is drinking fluids. The Percocet and Tramadol help with pain but does help some. Medication does make him groggy. reviewed by [facility] 01-18-2017 Results Test Name Value Interpretation Reference Range Facil ity Vital Signs Date Time Vital Sign Value Performing Clinician Faci lity 04-21-2023 07:09-0400 Body height 190.5 cm [facility]. 04-21-2023 07:09-0400 Body mass index (BMI) [Ratio] 35 kg/m2 Aubrie Mclaughlin [facility], [facility].; [place] [facility]. 04-21-2023 07:09-0400 Body surface area Derived from formula 2.53 m2 Aubrie Mclaughlin LPN [facility], [facility].; [employer] [facility], [facility]. 04-21-2023 07:09-0400 Body weight 127.01 kg Aubrie Mclaughlin HEALTH AND SAFETY TECHNICIAN [facility], [facility].; [employer] [facility], [facility]. 04-21-2023 07:09-0400 Diastolic blood pressure 68 mm[Hg] [facility].; [employer] [facility]. Encounters Encounter Date Encounter Type Care Provider Facility Start: 06-07-2023 End: 06-07-2023 ambulatory MEHDI CHAVARRIA [facility] Start: 04-21-2023 End: 04-21-2023 Office outpatient visit 15 minutes Mehdi [facility]avarria MD [facility] Start: 03-19-2023 End: 03-19-2023 ambulatory MARYJANE OCHOA [facility] Start: 03-05-2023 End: 03-05-2023 ambulatory RILEY CARPIO [facility] Start: 01-21-2023 End: 01-21-2023 Office outpatient visit 15 minutes Mehdi Chavarria MD Work Phone: [employer]. Start: 01-19-2023 End: 01-19-2023 ambulatory DIANN REYEZ [facility] Start: 01-17-2023 End: 01-19-2023 ambulatory DIANN REYEZ [facility] Start: 12-22-2022 End: 01-04-2023 Orders Mehdi Chavarria MD Work Phone: [employer]. Start: 12-08-2022 End: 12-08-2022 ambulatory MEHDI CHAVARRIA [facility] Start: 12-08-2022 End: 12-08-2022 Orders Mehdi Chavarria MD Work Phone: [employer]. Start: 11-24-2022 End: 11-29-2022 ambulatory MEHDI CHAVARRIA MD Facility:B Start: 11-24-2022 End: 11-28-[address] DAREN PHILIP MD [facility] Start: 11-19-2022 End: 11-19-2022 ambulatory MARYJANE CAUSEY [facility] Start: 11-19-2022 End: 11-19-2022 Office outpatient visit 15 minutes Mehdi Chavarria MD Work Phone: [employer]. Start: 11-17-2022 End: 11-18-2022 Emergency department patient visit MCKAYLA DIETRICH [facility] Start: 10-13-2022 End: 10-13-2022 Patient encounter procedure Mehdi Chavarria MD Work Phone: [employer]; [employer]. Start: 10-13-2022 End: 10-13-2022 Periodic preventive med est patient 65yrs& older Mehdi Chavarria MD Work Phone: [employer]. Start: 10-06-2022 End: 10-06-2022 Orders Mehdi Chavarria MD Work Phone: [employer]. Start: 10-05-2022 End: 10-05-2022 Orders Mehdi Chavarria MD Work Phone: [employer]. Start: 09-29-2022 End: 09-29-2022 Orders Mehdi Chavarria MD Work Phone: [employer]. Start: 09-29-2022 End: 09-29-2022 Orders Mehdi Chavarria MD Work Phone: [employer]. Start: 09-22-2022 End: 09-22-2022 Patient encounter procedure Jesika Jessica RIVERA [employer]. Start: 09-16-2022 End: 09-16-2022 ambulatory [facility] Start: 09-08-2022 End: 09-08-2022 Orders Mehdi Chavarria MD Work Phone: [employer] Start: 09-07-2022 ambulatory [facility] Start: 09-07-2022 End: 09-07-2022 Office outpatient visit 15 minutes Mehdi Chavarria MD Work Phone: [employer] Start: 06-16-2022 End: 06-16-2022 ambulatory [facility] Start: 04-07-2022 End: 04-07-2022 Office outpatient visit 15 minutes Mehdi Chavarria MD Work Phone: [employer]. Start: 11-25-2021 End: 11-25-2021 Office outpatient visit 15 minutes Mehdi Chavarria MD Work Phone: [employer] Start: 11-25-2021 End: 11-25-2021 Preprocedural examination done Mehdi Chavarria MD Work Phone: [employer]; [employer]. Start: 10-24-2021 End: 10-24-2021 Historical Summary Mehdi Chavarria MD Work Phone: [employer] Start: 10-09-2021 End: 10-09-2021 Office outpatient visit 15 minutes Mehid Chavarria MD Work Phone: [employer] Start: 10-09-2021 End: 10-09-2021 Patient encounter procedure Brenda Noguera CMA [employer]; [employer]. Start: 10-02-2021 End: 10-02-2021 Orders Mehdi Chavarria MD Work Phone: [employer] Start: 05-30-2021 End: 05-30-2021 Office outpatient visit 15 minutes Mehdi Chavarria MD Work Phone: [employer] Start: 05-21-2021 End: 05-21-2021 Nursing evaluation of patient and report Mehdi Chavarria MD Work Phone: [employer] Start: 05-13-2021 End: 05-13-2021 Office outpatient visit 25 minutes Mehdi Chavarria MD Work Phone: [employer] Start: 05-13-2021 End: 05-13-2021 Preprocedural examination done Mehdi Chavarria MD Work Phone: [employer]; [employer] Start: 11-26-2020 End: 11-26-2020 Patient encounter procedure Mehdi Chavarria MD Work Phone: [employer]; [employer] Start: 11-26-2020 End: 11-26-2020 Periodic preventive med est patient 65yrs& older Mehdi Chavarria MD Work Phone: [employer]. Start: 11-19-2020 End: 11-19-2020 Orders Mehdi Chavarria MD Work Phone: [employer] Start: 09-27-2020 End: 09-27-2020 Orders Mehdi Chavarria MD Work Phone: [employer] Start: 05-29-2020 End: 05-29-2020 Office outpatient visit 25 minutes Mehdi Chavarria MD Work Phone: [employer] Start: 04-04-2020 End: 04-04-2020 Nursing evaluation of patient and report Mehdi Chavarria MD Work Phone: [employer] Start: 12-01-2019 End: 12-01-2019 Patient encounter procedure Mehdi Chavarria MD Work Phone: [employer] Start: 12-01-2019 End: 12-01-2019 Periodic preventive med est patient 65yrs& older Mehdi Chavarria MD Work Phone: [employer]. Start: 11-24-2019 End: 11-28-2019 Orders Mehdi Chavarria MD Work Phone: [employer]. Start: 10-02-2019 End: 10-03-2019 Orders Mehdi Chavarria MD Work Phone: [employer] Start: 06-19-2019 End: 06-19-2019 Office outpatient visit 15 minutes Mehdi Chavarria MD Work Phone: [employer] Start: 05-26-2019 End: 05-26-2019 Office outpatient visit 25 minutes Mehdi Chavarria MD Work Phone: [employer] Start: 04-12-2019 End: 04-12-2019 Nursing evaluation of patient and report Mehdi Chavarria MD Work Phone: [employer] Start: 02-22-2019 End: 02-22-2019 Office outpatient visit 15 minutes Mehdi Chavarria MD Work Phone: [employer] Start: 11-23-2018 End: 11-23-2018 Office outpatient visit 25 minutes Mehdi Chavarria MD Work Phone: [employer] Start: 09-30-2018 End: 09-30-2018 Medication Mehdi Chavarria MD Work Phone: [employer]. Start: 08-19-2018 End: 08-19-2018 Orders Mehdi Chavarria MD Work Phone: [employer] Start: 08-16-2018 End: 08-16-2018 Office outpatient visit 15 minutes Mehdi Chavarria MD Work Phone: [employer]. Start: 08-01-2018 End: 08-01-2018 Office outpatient visit 15 minutes Mehdi Chavarria MD Work Phone: [employer] Start: 07-22-2018 End: 07-22-2018 Medication Mehdi Chavarria MD Work Phone: [employer] Start: 06-15-2018 End: 06-15-2018 Office outpatient visit 15 minutes Mehdi Chavarria MD Work Phone: [employer] Start: 05-25-2018 End: 05-25-2018 Office outpatient visit 15 minutes Mehdi Chavarria MD Work Phone: [employer] Start: 05-19-2018 End: 05-19-2018 Telephone follow-up Mehdi Chavarria MD Work Phone: [employer] Start: 04-28-2018 End: 04-28-2018 Nursing evaluation of patient and report Mehdi Chavarria MD Work Phone: [employer] Start: 11-22-2017 End: 11-22-2017 Office outpatient visit 15 minutes Mehdi Chavarria MD Work Phone: [employer] Start: 09-29-2017 End: 09-29-2017 Office outpatient visit 15 minutes Mehdi Chavarria MD Work Phone: [employer] Start: 05-24-2017 End: 05-24-2017 Office outpatient visit 15 minutes Mehdi Chavarria MD Work Phone: [employer] Start: 05-18-2017 End: 05-18-2017 Historical Summary Mehdi Chavarria MD Work Phone: [employer] Start: 04-27-2017 End: 04-27-2017 Nursing evaluation of patient and report Mehdi Chavarria MD Work Phone: [employer]. Start: 04-02-2017 End: 04-03-2017 Medication Mehdi Chavarria MD Work Phone: [employer] Start: 02-22-2017 End: 02-22-2017 Nursing evaluation of patient and report Mehdi Chavarria MD Work Phone: [employer] Start: 02-19-2017 End: 02-19-2017 Orders Mehdi Chavarria MD Work Phone: [employer] Start: 02-17-2017 End: 02-17-2017 Office outpatient visit 15 minutes Mehdi Chavarria MD Work Phone: [employer] Start: 02-08-2017 End: 02-08-2017 Orders Mehdi Chavarria MD Work Phone: [employer] Start: 02-05-2017 End: 02-05-2017 Medication Mehdi Chavarria MD Work Phone: [employer] Start: 01-19-2017 End: 01-19-2017 Medication Mehdi Chavarria MD Work Phone: [employer]. Start: 01-18-2017 End: 01-18-2017 Office outpatient visit 15 minutes Mehdi Chavarria MD Work Phone: [employer] Start: 11-06-2016 End: 11-06-2016 Orders Mehdi Chavarria MD Work Phone: [employer]. Start: 11-06-2016 End: 11-06-2016 Patient encounter procedure Apple Sorenson LPN [employer] Start: 11-06-2016 End: 11-06-2016 Patient encounter procedure Mehdi Chavarria MD Work Phone: [employer].; [employer] Start: 11-06-2016 End: 11-06-2016 Periodic preventive med est patient 65yrs& older Mehdi Chavarria MD Work Phone: [employer]. Start: 10-30-2016 End: 10-30-2016 Orders Mehdi Chavarria MD Work Phone: [employer]. Start: 05-20-2016 End: 05-20-2016 Orders Mehdi Chavarria MD Work Phone: [employer]. Start: 05-13-2016 End: 05-13-2016 Orders Mehdi Chavarria MD Work Phone: [employer]. Start: 05-08-2016 End: 05-08-2016 Patient encounter procedure Mehdi Chavarria MD Work Phone: [employer]. Start: 12-09-2015 End: 12-09-2015 Medication Mehdi Chavarria MD Work Phone: [employer]. Start: 11-18-2015 End: 11-18-2015 Office outpatient visit 15 minutes Mehdi Chavarria MD Work Phone: [employer]. Start: 11-06-2015 End: 11-06-2015 Office outpatient visit 15 minutes Mehdi Chavarria MD Work Phone: [employer] Start: 04-16-2015 End: 04-16-2015 Nursing evaluation of patient and report Mehdi Chavarria MD Work Phone: [employer] Start: 02-20-2015 End: 02-20-2015 Orders Mehdi Chavarria MD Work Phone: [employer] Start: 11-16-2014 End: 11-16-2014 Office outpatient visit 15 minutes Mehdi Chavarria MD Work Phone: [employer] Start: 11-15-2014 End: 11-15-2014 Historical Summary Mehdi Chavarria MD Work Phone: [employer] Start: 10-12-2014 End: 10-12-2014 Orders Mehdi Chavarria MD Work Phone: [employer] Start: 06-19-2014 End: 06-19-2014 Office outpatient visit 15 minutes Mehdi Chavarria MD Work Phone: [employer] Start: 05-22-2014 End: 05-22-2014 Medication Mehdi Chavarria MD Work Phone: [employer]. Start: 05-11-2014 End: 05-11-2014 Nursing evaluation of patient and report Mehdi Chavarria MD Work Phone: [employer] Start: 05-08-2014 End: 05-08-2014 Office outpatient visit 15 minutes Mehdi Chavarria MD Work Phone: [employer] Start: 04-20-2014 End: 04-20-2014 Office outpatient visit 15 minutes Mehdi Chavarria MD Work Phone: [employer] Start: 12-26-2013 End: 12-26-2013 Orders Mehdi Chavarria MD Work Phone: [employer] Start: 12-25-2013 End: 12-25-2013 Patient encounter procedure Mehdi Chavarria MD Work Phone: [employer]. Start: 12-12-2013 End: 12-12-2013 Patient encounter procedure Mehdi Chavarria MD Work Phone: [employer]. Start: 10-18-2013 End: 10-18-2013 Patient encounter procedure Mehdi Chavarria MD Work Phone: [employer] Start: 06-26-2013 End: 06-26-2013 Medication Mehdi Chavarria MD Work Phone: [employer]. Start: 05-08-2013 End: 05-08-2013 Nursing evaluation of patient and report Mehdi Chavarria MD Work Phone: [employer] Start: 04-19-2013 End: 04-19-2013 Patient encounter procedure Mehdi Chavarria MD Work Phone: [employer] Start: 04-17-2013 End: 04-17-2013 Historical Summary Mehdi Chavarria MD Work Phone: [employer] Start: 04-11-2013 End: 04-11-2013 Orders Mehdi Chavarria MD Work Phone: [employer]. Start: 10-15-2012 End: 10-15-2012 Patient encounter procedure Mehdi Chavarria MD Work Phone: [employer] Start: 09-12-2012 End: 09-12-2012 Orders Mehdi Chavarria MD Work Phone: [employer] Start: 08-16-2012 End: 08-16-2012 Patient encounter procedure Mehdi Chavarria MD Work Phone: [employer] Start: 05-16-2012 End: 05-16-2012 Patient encounter procedure Mehdi Chavarria MD Work Phone: [employer] Patient encounter procedure Aubrie Clemencia Mclaughlin HEALTH AND SAFETY TECHNICIAN [employer] Procedures Date Procedure Procedure Detail Performing Clinician Start: 12-22-2022 End: 12-22-2022 Lab findings surveillance Aubrie Khanna Dayanara coronel HEALTH AND SAFETY TECHNICIAN Plan of Treatment Date Care Activity Detail Author Start: 10-21-2023 Patient encounter procedure Medical; PHYSICAL - AWV [employer]. Start: 21-Oct-2023 9:10 MD Mehdi Chavarria Appointment Request [employer] Start: 10-15-2023 Nursing evaluation o f patient and report Medical; Nurse visit - [facility] [employer]. Start: 15-Oct-2023 8:00 NURSE, FLOAT Appointment Request [employer]. Start: 10-09-2021 Adv care pln tlkd & alt dcsn maker docd Advance Care Planning conversation complete and POA/Living Will Documents Present in Medical Record ([id number]) Start: 09-Oct-2021 Intent [employer] Tdap (7 years an d up) Scheduled for Administration Intent [employer] Immunizations Immunization Date Immunization Notes Care Provider Fa ashleyty 09-22-2022 tetanus and diphther ia toxoids, adsorbed, preservative free, for adult use (2 Lf of tetanus toxoid and 2 Lf of diphtheria toxoid) Mehdi Chavarria MD Work Phone: [employer] 04-07-2022 influenza virus vaccine, unspecified formulation Mehdi Chavarria MD Work Phone: [employer] 04-07-2022 influenza, injectabl e, quadrivalent, contains preservative Mehdi Chavarria MD Work Phone: [employer] Payers Date Payer Category Payer Unknown [id number] 1950 Unknown [id number] 2.16.8 [id number] 1950 Unknown [id number] 2.16.8 [id number] 1948 Unknown [id number] 2.16.8 [id number] 1948 Unknown [id number] 2.16.8 [id number] 1948 Unknown [id number] 2.16.8 [id number] 1948 Unknown [id number] 2.16.8 [id number] 1948 Unknown [id number] 2.16.84 [id number] 1948 Unknown [id number] 2.16.84 [id number] 1948 Unknown [id number] 2.16.84 [id number] 1948 Unknown [id number] 2.16.84 [id number] 1948 Unknown [id number] 2.16.84 [id number] 1948 Unknown [id number] 2.16.84 [id number] Unknown [facility] Social History Date Type Detail Facility Tobacco smoking status Never smo ked tobacco (finding) [facility] Sex Assigned At Sex [facility] Caffeine [facility] Caffe[facility] [employer] [facility] [employer] Current Work/Study Status: Lory [employer]edi Work/Study Status: ; Retired. [facility].; [employer] [employer] Exercise History: Exercise Histo ry: ; Moderate. [employer] Tobacco Use: Tobacco Use: ; N ever smoker. [employer] Male [employer] Work Phone: Moderate [employer] Work Phone: Retired [employer]. Work Phone: Clinical Note 11-26-2022 Note Date & Type Note Facility 11-26-2022 Note All parts labelled with patient name and [id number]. Received in formalin labeled sigmoid polyp are 2 loving tissue fragments measuring 0.4 and 0.6 cm debris also identified aggregating 0.7 x 0.1 x 0.1. TS-1 B. Received in formalin labeled transverse colon polyp are multiple loving tissue fragments aggregating 1.0 x 0.4 x 0.2 cm. TS-1 C. Received in formalin labeled right colon polyp is 1 loving tissue fragment measuring 0.4 cm. TS-1 D. Received in formalin labeled cecal polyp are multiple loving tissue fragments measuring 1.7 x 0.4 x 0.3. TS-1 E. Received in formalin labeled mid transverse polyp are 4 loving tissue fragments measuring 0.3 to 0.4 cm, debris also identified aggregating 1.0 x 0.2 x 0.1 cm. TS-1 Alise Campbell Grossing Risk Control Manager/ Dr. Nitin Morrison, Pathologist Dictated by Alisedickson Campbell [facility] Clinical Note 11-26-2022 Note Date & Type Note Facility 11-26-2022 Note All parts labelled with patient name and [id number]. Received in formalin labeled sigmoid polyp are 2 loving tissue fragments measuring 0.4 and 0.6 cm debris also identified aggregating 0.7 x 0.1 x 0.1. TS-1 B. Received in formalin labeled transverse colon polyp are multiple loving tissue fragments aggregating 1.0 x 0.4 x 0.2 cm. TS-1 C. Received in formalin labeled right colon polyp is 1 loving tissue fragment measuring 0.4 cm. TS-1 D. Received in formalin labeled cecal polyp are multiple loving tissue fragments measuring 1.7 x 0.4 x 0.3. TS-1 E. Received in formalin labeled mid transverse polyp are 4 loving tissue fragments measuring 0.3 to 0.4 cm, debris also identified aggregating 1.0 x 0.2 x 0.1 cm. TS-1 George Mtz Risk Control Manager/ Dr. Nitin Morrison, Pathologist Dictated by [facility] Clinical Note 11-25-2022 Note Date & Type Note Facility 11-25-2022 Note All parts labelled with patient name and [id number]. Received in formalin labeled sigmoid polyp are 2 loving tissue fragments measuring 0.4 and 0.6 cm debris also identified aggregating 0.7 x 0.1 x 0.1. TS-1 B. Received in formalin labeled transverse colon polyp are multiple loving tissue fragments aggregating 1.0 x 0.4 x 0.2 cm. TS-1 C. Received in formalin labeled right colon polyp is 1 loving tissue fragment measuring 0.4 cm. TS-1 D. Received in formalin labeled cecal polyp are multiple loving tissue fragments measuring 1.7 x 0.4 x 0.3. TS-1 E. Received in formalin labeled mid transverse polyp are 4 loving tissue fragments measuring 0.3 to 0.4 cm, debris also identified aggregating 1.0 x 0.2 x 0.1 cm. TS-1 George Mtz Risk Control Manager/ Dr. Nitin oMrrison, Pathologist Dictated by [facility] Clinical Note 11-25-2022 Note Date & Type Note Facility 11-25-2022 Note All parts labelled with patient name and [id number]. Received in formalin labeled sigmoid polyp are 2 loving tissue fragments measuring 0.4 and 0.6 cm debris also identified aggregating 0.7 x 0.1 x 0.1. TS-1 B. Received in formalin labeled transverse colon polyp are multiple loving tissue fragments aggregating 1.0 x 0.4 x 0.2 cm. TS-1 C. Received in formalin labeled right colon polyp is 1 loving tissue fragment measuring 0.4 cm. TS-1 D. Received in formalin labeled cecal polyp are multiple loving tissue fragments measuring 1.7 x 0.4 x 0.3. TS-1 E. Received in formalin labeled mid transverse polyp are 4 loving tissue fragments measuring 0.3 to 0.4 cm, debris also identified aggregating 1.0 x 0.2 x 0.1 cm. TS-1 George Mtz Risk Control Manager/ Dr. Nitin Morrison, Pathologist Dictated by [facility] Clinical Note 11-25-2022 Note Date & Type Note Facility 11-25-2022 Note All parts labelled with patient name and [id number]. Received in formalin labeled sigmoid polyp are 2 loving tissue fragments measuring 0.4 and 0.6 cm debris also identified aggregating 0.7 x 0.1 x 0.1. TS-1 B. Received in formalin labeled transverse colon polyp are multiple loving tissue fragments aggregating 1.0 x 0.4 x 0.2 cm. TS-1 C. Received in formalin labeled right colon polyp is 1 loving tissue fragment measuring 0.4 cm. TS-1 D. Received in formalin labeled cecal polyp are multiple loving tissue fragments measuring 1.7 x 0.4 x 0.3. TS-1 E. Received in formalin labeled mid transverse polyp are 4 loving tissue fragments measuring 0.3 to 0.4 cm, debris also identified aggregating 1.0 x 0.2 x 0.1 cm. TS-1 George Mtz Risk Control Manager/ Dr. Nitin Morrison, Pathologist Dictated by [facility] Clinical Note 11-25-2022 Note Date & Type Note Facility 11-25-2022 Note All parts labelled with patient name and [id number]. Received in formalin labeled sigmoid polyp are 2 loving tissue fragments measuring 0.4 and 0.6 cm debris also identified aggregating 0.7 x 0.1 x 0.1. TS-1 B. Received in formalin labeled transverse colon polyp are multiple loving tissue fragments aggregating 1.0 x 0.4 x 0.2 cm. TS-1 C. Received in formalin labeled right colon polyp is 1 loving tissue fragment measuring 0.4 cm. TS-1 D. Received in formalin labeled cecal polyp are multiple loving tissue fragments measuring 1.7 x 0.4 x 0.3. TS-1 E. Received in formalin labeled mid transverse polyp are 4 loving tissue fragments measuring 0.3 to 0.4 cm, debris also identified aggregating 1.0 x 0.2 x 0.1 cm. TS-1 George Mtz Risk Control Manager/ Dr. Nitin Morrison, Pathologist Dictated by [facility] Clinical Note 11-25-2022 Note Date & Type Note Facility 11-25-2022 Note All parts labelled with patient name and [id number]. Received in formalin labeled sigmoid polyp are 2 loving tissue fragments measuring 0.4 and 0.6 cm debris also identified aggregating 0.7 x 0.1 x 0.1. TS-1 B. Received in formalin labeled transverse colon polyp are multiple loving tissue fragments aggregating 1.0 x 0.4 x 0.2 cm. TS-1 C. Received in formalin labeled right colon polyp is 1 loving tissue fragment measuring 0.4 cm. TS-1 D. Received in formalin labeled cecal polyp are multiple loving tissue fragments measuring 1.7 x 0.4 x 0.3. TS-1 E. Received in formalin labeled mid transverse polyp are 4 loving tissue fragments measuring 0.3 to 0.4 cm, debris also identified aggregating 1.0 x 0.2 x 0.1 cm. TS-1 George Mtz Risk Control Manager/ Dr. Nitin Morrison, Pathologist Dictated by [facility] Evaluation + Plan note Note Date & Type Note Facility Evaluation + Plan note No data available for this section [facility] Hospital Discharge instructions Note Date & Type Note Facility Hospital Discharge instructions No data available for this section [facility] Summary Purpose Family History arthritis Status:Active Comments:Mother. Maternal Grandmother. Cerebrovascular Accident Status:Active Comment s:Mother. Coronary Artery Disease Status:Active Comments :Father. epilepsy Status:Active Comments:Sister. Hypertension Status:Active Comments:Father. Hypothyroidism Status:Active Comments:Mother. Sister. Osteoarthritis Status:Active Comments:Mother. arthritis Status:Active Comments:Mother. Maternal Grandmother. Cerebrovascular Accident Status:Active Comment s:Mother. Coronary Artery Disease Status:Active Comments :Father. epilepsy Status:Active Comments:Sister. Hypertension Status:Active Comments:Father. Hypothyroidism Status:Active Comments:Mother. Sister. Osteoarthritis Status:Active Comments:Mother. Advance Directives No Advanced Directives Records FoundNo Advanced Directives Records FoundNo Advanced Directives Records FoundNo Advanced Directives Records Found Additional Source Comments (unrecognized sect ion and content) No Status Records FoundNo Status Records FoundNo Status Records FoundNo Status Records Found INFORMATION SOURCE (unrecogn ized section and content) DATE CREATED AUTHOR AUTHOR'S ORGANIZ ATION 12/14/2022 [facility] ([place]) DATE CREATED AUTHOR AUTHOR'S ORGANIZ ATION 12/23/2022 [facility] DATE CREATED AUTHOR AUTHOR'S ORGANIZ ATION 06/08/2023 [facility] Patient Care team informatio n (unrecognized section and content) Care Team Personnel Name: MEHDI CHAVARRIA MD Member Role: Primary Care Physician Address: Address: [address] [place] [address] [address] Care Team Related Persons Name: JIAN IBARRA Address: Home [address] [place] [address] [address] FOR RECORDS PERTAINING TO PATIENTS WHO ARE OR HAVE BEEN ENROLLED IN A CHEMICAL DEPENDENCY/SUBSTANCEABUSE PROGRAM, SOME INFORMATION MAY BE OMITTED. This clinical summary was aggregated from multiple sources. Caution should be exercised in using it in the provision of clinical care. This summary normalizes information from multiple sources, and as a consequence, information in this document may materially change the coding, format and clinical context of patient data. In addition, data may be omitted in some cases. CLINICAL DECISIONS SHOULD BE BASED ON THE PRIMARY CLINICAL RECORDS. [employer] provides no warranty or guarantee of the accuracy or completeness of information in this document.
[2023-07-19] MEDS: Lactated Ringers 1,000 ML 15 ML IV (06:18)
--- NOTE | 2023-07-19 07:30 | LES_PTH ---
PATHOLOGY RESULTS PATIENT: JOAQUÍN IBARRA LOC: [facility] [place] U#:[id number] AGE/SX: 72/M ROOM: RE07/19/[address]: Dr. Marlo Varela MD : [id number] BED: DIS: 07/19/2023 SPEC #: [id number] RECD: 07/19/23 08:25 STATUS: CARLOS REChristine #: [id number] SAMY: 07/19/23 07:[address]: Marlo Varela DEPT: SURGICAL PATHOLOGY RECD BY: Lucia Palacio ENTERED: 07/19/23 08:26 SP TYPE: Lesion OTHR DR: Dr. Mehdi Chavarria MD Tissues: Skin of face, NOS Procedures: Frozen Section (charge) Frozen Section Add'l ([facility]) Surgery Specimen Level IV HEADER OPERATION: Excision of basal cell face lesion with frozen section PRE-OP DIAGNOSIS: Basal cell carcinoma of skin of face TISSUE SUBMITTED: Basal cell carcinoma of face, long stitch - inferior 6 o'clock, short stitch - medial 3?o'clock FROZEN SECTION DIAGNOSIS Face lesion, excisional biopsy: Basal cell carcinoma, completely excised. LALO:ara 07/19/2023 MICROSCOPIC DIAGNOSIS Face lesion, excisional biopsy: Basal cell carcinoma, completely excised. Solar elastosis. LALO:ara 07/20/2023 MICROSCOPIC DESCRIPTION Slides are reviewed. GROSS DESCRIPTION Received fresh for frozen section diagnosis labeled with the patient's name is a specimen designated basal cell carcinoma of face. The specimen consists of a piece of loving-white skin ellipse measuring 1.5 x 0.8 x 0.4 cm. The specimen is oriented as follows: long stitch - inferior 6 o'clock, short stitch - medial 3?o'clock. The specimen is inked as follows: superior tip - yellow, inferior tip - green and medial margin 3 o'clock - black, lateral margin 9 o'clock - blue. The specimen is serially sectioned and submitted entirely for frozen section diagnosis in two cassettes as follows: 1 - superior and inferior tips, 2 - rest of the specimen. / LALO:ara 07/19/2023 TC:0 CPT: 88512, 87801, 96346
--- NOTE | 2023-07-19 07:33 | PCM.DC.SUM ---
Providers Primary Care Physician: Dr. Mehdi Chavarria MD Reason For Visit: Excision, Lesion Medications at Discharge Home Medications bupropion HCl 150 mg 24 hr tablet, extended release 300 mg PO DAILY 12/15/21 folic acid 1 mg tablet 2 mg PO DAILY 12/15/21 hydroxychloroquine 200 mg tablet 400 mg PO BID 12/15/21 leucovorin calcium 25 mg tablet 15 mg PO MO 12/15/21 levothyroxine 125 mcg tablet 125 mcg PO DAILY 12/15/21 methotrexate sodium 2.5 mg tablet 20 mg PO GARNER 12/15/21 mirtazapine 30 mg tablet 30 mg PO QHS depression 12/15/21 omeprazole 20 mg capsule,delayed release 20 mg PO DAILY 12/15/21 tamsulosin 0.4 mg capsule 0.4 mg PO 1200 12/15/21 pregabalin 225 mg capsule 75 mg PO DAILY 10/13/22 sulfasalazine 500 mg tablet 0.5 g PO BID 10/13/22 albuterol sulfate 90 mcg/actuation aerosol inhaler 2 puff inhalation Q4H PRN shortness of breath or wheezing #8.5 grams 06/14/23 prednisone 10 mg tablet 10 mg PO DIRECTED PRN ARTHRITIS FLARE 06/14/23 pregabalin 75 mg capsule 75 mg PO 1200 07/06/23 pregabalin 75 mg capsule 150 mg PO QHS 07/06/23 Weight / BMI Weight Weight: 124.738 kg Body Mass Index (BMI) 34.3 ABG / Lab / Microbiology Data 07/15/23 09:11 07/15/23 09:11 D/C Instructions Discharge Diet: No restrictions Discharge Activity: Return to Normal Activity Additional Dressing/Incision Instructions: remove dressing tomorrow morning and discard. Apply antibiotic ointment twice a day. May get the incision wet on Wednesday Please Follow Up With: Marlo Varela MD When: next week Meaningful Use Info Meaningful Use Diagnoses (Choose all that apply): None applicable Discharge Plan Admission Attending Provider: Marlo Varela Primary Care Provider: Mehdi Chavarria Discharge Orders/Prescriptions Prescriptions: No Action pregabalin 225 mg capsule 75 mg PO DAILY sulfasalazine 500 mg tablet 0.5 g PO BID Rx Instructions: give with food (meal/snack) prednisone 10 mg tablet 10 mg PO DIRECTED PRN (Reason: ARTHRITIS FLARE) Rx Instructions: as directed PRN for flare up albuterol sulfate 90 mcg/actuation HFA aerosol inhaler 2 puff inhalation Q4H PRN (Reason: shortness of breath or wheezing) Qty: 8.5 3RF Rx Instructions: administer with spacer leucovorin calcium 25 mg tablet 15 mg PO MO Patient Comments: TAKE 1 TABLET BY MOUTH ONCE A WEEK methotrexate sodium 2.5 mg tablet 20 mg PO GARNER Patient Comments: TAKE 8 TABLETS BY MOUTH ONCE A WEEK tamsulosin 0.4 mg capsule 0.4 mg PO 1200 Patient Comments: TAKE 1 CAPSULE BY MOUTH ONCE DAILY mirtazapine 30 mg tablet 30 mg PO QHS Patient Comments: TAKE 1 TABLET BY MOUTH EVERY DAY AT BEDTIME levothyroxine 125 mcg tablet 125 mcg PO DAILY omeprazole 20 mg capsule,delayed release(DR/EC) 20 mg PO DAILY Patient Comments: TAKE 1 CAPSULE BY MOUTH ONCE DAILY folic acid 1 mg tablet 2 mg PO DAILY Patient Comments: TAKE 2 TABLETS BY MOUTH ONCE DAILY hydroxychloroquine 200 mg tablet 400 mg PO BID Patient Comments: TAKE 1 TABLET BY MOUTH TWICE DAILY bupropion HCl 150 mg tablet extended release 24 hr 300 mg PO DAILY Patient Comments: TAKE 1 TABLET BY MOUTH EVERY 24 HOURS pregabalin 75 mg capsule 75 mg PO 1200 pregabalin 75 mg capsule 150 mg PO QHS Referrals / Follow Up: Mehdi Chavarria MD [Primary Care Provider] - Disposition Disposition (needs filled in before D/C Order can be placed): Home, Self Care
[2023-07-19] MEDS: Lidocaine 1% /Epi 1:100 (20ml) 20 ML Vial (07:48)
[2023-07-19] MEDS: BACITRACIN/POLYMYXIN B 15 GM Tube 1 APPLIC (08:01)
--- NOTE | 2023-07-19 08:17 | PCM.OPRPT ---
Report of Operation Date of Procedure: 07/19/23 Pre-Operative Diagnosis: basal cell carcinoma face Post-Operative Diagnosis: SAME Surgery/Procedure Performed:: Excision basal cell carcinoma (1.2 x 2 cm) Intermediate repair Description of Surgical Findings:: completely excised by frozen section Surgeon: Marlo Varela Type of Anesthesia: General Anesthesiologist: Devyn Shelton Drains: none Estimated Blood Loss (mL): minimal Description of Procedure: The patient was taken to the operating room 07/19/2023. He was placed in the supine position on the operating table. He was given sufficient general anesthesia. The face was prepped and draped sterilely. 1% lidocaine with epinephrine was injected into the skin surrounding the lesion in the philtrum. After sufficient vasoconstriction, an elliptical incision was made with a 15 blade. The lesion was then fully excised sharply. It was marked with suture and sent to pathology for frozen section. Hemostasis was achieved with bipolar cautery. I then irrigated the wound. I undermined both medially and laterally with iris scissors. Again hemostasis was achieved with bipolar cautery. Closure was then completed with 4-0 Vicryl subcutaneous and 6-0 running nylon for the skin. Frozen section revealed a basal cell carcinoma that was completely excised. Bacitracin and pressure dressing were applied. The patient was then awoken and brought to the recovery room in stable condition. Blood loss minimal, replacement none. Sponge, needle, and instrument count were correct at the end of the procedure.
== END 2023-07-19 09:56 | disposition home or self-care (01) ==
LOC: SDC 05:49 → AC 05:50
PROVIDERS: PCP Family Medicine; Referring Provider Otolaryngology; Visit Provider Otolaryngology
PROC: (CPT 11644; principal; 2023-07-19 07:20)
DX: C44.310 Basal cell carcinoma of skin of unspecified parts of face (principal); M06.9 Rheumatoid arthritis, unspecified; L57.8 Other skin changes due to chronic exposure to nonionizing radiation; J45.909 Unspecified asthma, uncomplicated; F41.9 Anxiety disorder, unspecified; Z86.16 Personal history of COVID-19; K21.9 Gastro-esophageal reflux disease without esophagitis; F32.A Depression, unspecified; Z87.19 Personal history of other diseases of the digestive system; Z90.49 Acquired absence of other specified parts of digestive tract
CPT/HCPCS: 11644; 36415; 84520; 85027; 88305; 88331; 88332; 93005; J7120; J2405

== ENCOUNTER → 2025-02-01 | Outpatient (CLI) | payer MEDICARE, SELFPAY ==
[2025-02-01 12:16] LABS: Hematocrit 42.7 % (40-54); Hemoglobin 13.8 g/dL (13.0-16.5); Immature Granulocytes Count 0.020 X10^3/uL (0.0-0.0); Mean Corp Hgb Conc 32.3 g/dL (32-36); Mean Corpuscular Volume 102.4 fL (80-94); Mean Platelet Vol. 9.8 fl (6.2-12.0); NRBC Flagged by Analyzer 0 % (0-5); Platelet Count 188 K/mm3 (150-450); RBC Distribution Width CV 14.3 % (11.6-14.6); RBC Distribution Width SD 53.8 fl (35.1-43.9); Red Blood Count 4.17 M/mm3 (4.6-6.2); White Blood Count 6.2 K/mm3 (4.4-11.0)
[2025-02-06 18:08] LABS: Aspirgillus flavus Negative (Neg:<1:1); Aspirgillus fumigatus Negative (Neg:<1:1); Aspirgillus niger Negative (Neg:<1:1); Bluegrass, Kentucky 0.12 kU/L (Class 0/I); Cat Hair/Dander, Standard <0.10 kU/L (Class 0); Dog Epithelia <0.10 kU/L (Class 0); Elm, American White <0.10 kU/L (Class 0); Oak, White <0.10 kU/L (Class 0); Plantain, English 0.11 kU/L (Class 0/I); Ragweed, Short/Common 1.37 kU/L (Class II)
== END | disposition home or self-care (01) ==
LOC: LAB 10:49
PROVIDERS: PCP Family Medicine; Referring Provider Nurse Practitioner Acute Care; Visit Provider Nurse Practitioner Acute Care
DX: J30.2 Other seasonal allergic rhinitis (principal)
CPT/HCPCS: 36415; 82785; 85025; 86003; 86606